=== PATIENT | female | born 1945 | race Caucasian/White ===

== ENCOUNTER 2020-10-22 14:44 | Outpatient (CLI) | payer MEDICARE, OTHER, SELFPAY ==
--- NOTE | ~2020-10-22 | MM_ITS ---
EXAMINATION: MM screening [facility] BI w marcelo HISTORY: Screening TECHNIQUE: Craniocaudal and mediolateral oblique 3-D tomosynthesis images were obtained and synthetic 2-D images were generated. CAD analysis was submitted and interpreted. COMPARISON: Comparison to multiple prior studies sequentially, with oldest reviewed study dated 06/08. BREAST PARENCHYMAL COMPOSITION: There are scattered areas of fibroglandular density. FINDINGS: There is no evidence of suspicious mass, calcification, or architectural distortion to sugg est malignancy in either breast. There has been no suspicious interval change. IMPRESSION: 1. No mammographic evidence of malignancy. 2. Recommend routine screening mammography in one year. BI-RADS Category 1: Negative Reviewed, dictated and finalized at location A.
== END 2020-10-22 14:45 | disposition home or self-care (01) ==
LOC: ANHIMG 14:47
PROVIDERS: PCP Family Medicine; Visit Provider Family Medicine
DX: Z12.31 Encounter for screening mammogram for malignant neoplasm of breast (principal)
CPT/HCPCS: 77063; 77067

== ENCOUNTER 2021-04-28 02:28 | Day surgery (SDC) | payer MEDICARE, OTHER, SELFPAY ==
[2021-04-13 08:40] VITALS: BMI 42.7
[2021-04-28 09:19] VITALS: BP 141/79; PULSE 88; RESP 20; TEMP 36.2; O2SAT 98; BMI 45.6
[2021-04-28] MEDS: LACTATED RINGERS 1,000 ML 150 ML IV CONT (09:21)
--- NOTE | 2021-04-28 09:27 | P.PNAN_ITS ---
Anes - Initial Pre Proc Eval Procedure: Operation Date: 04/28/21 10:30 Proposed Procedures p Esophagogastroduodenoscopy - Benjamin Mckenzie MD Date/Time: 04/28/21 09:27 Surgeon: Benjamin Mckenzie MD Pre Op Diagnosis: abnormal CAT scan Patient Data Age: 76 Gender: F Height: 1.63 m Weight: 120.7 kg Last Vital Signs Temp 36.2 C L 04/28/21 09:19 Pulse 88 04/28/21 09:19 Resp 20 04/28/21 09:19 BP 141/79 H 04/28/21 09:19 Pulse Ox 98 04/28/21 09:19 Allergies Allergy/AdvReac Type Severity Reaction Status Date / Time No Known Allergies Allergy Verified 04/28/21 09:18 Home Medications Medication Instructions Recorded Confirmed Type multivitamin 1 tablet PO DAILY 06/26/19 04/28/21 History hydrochlorothiazide 25 mg tablet 25 mg PO DAILY #90 tablet 12/17/20 04/28/21 Rx pravastatin 40 mg tablet 40 mg PO DAILY #90 tablet 12/17/20 04/28/21 Rx telmisartan 80 mg tablet 80 mg PO DAILY #90 tablet 12/17/20 04/28/21 Rx Patient hx anesthesia problems: none Family hx anesthesia problems: none Results Review: All pre-operative results and documents have been reviewed as part of the pre-operative evaluation. [facility] Past Medical History Medical History (Updated 04/28/21 @ 09:28 by Sung Dorman MD) Morbid obesity Osteoarthritis Osteopenia Surgical History Surgical History (Updated 04/28/21 @ 09:28 by Sung Dorman MD) History of total knee arthroplasty Family History Family History Father Hypertension Mother Hypertension Social History Social History Smoking status: Never smoker Second hand tobacco smoke exposure: No Alcohol intake: never Substance use: never Substance use type: does not use Living arrangements: with family Gender identity (if verbalized by the patient): Female Spiritual care concerns: No Anes - Eval Final PreProcedure Day of Procedure 04/28/21 09:27 Patient weight: morbidly obese Heart: regular rate and rhythm Lungs: clear to auscultation Airway: Mallampati scale class II Neurological: alert and oriented Last oral intake: >/= 8 hours ASA classification: III Emergent: no Anesthetic plan: proceed Anesthesia type and monitoring: general GIVS and standard monitoring Results Review: All pre-operative results and documents have been reviewed as part of the pre-operative evaluation. Informed Consent: The patient's anesthetic plan and its attendant risks and benefits were discussed with the patient/family/POA. Questions were solicited and answers provided to the satisfaction of the patient/family/POA.
--- NOTE | 2021-04-28 10:03 | PM.HPGS ---
History of Present Illness History of Present Illness Consent: Risks, benefits, and alternatives have been discussed and questions answered. Patient agrees to proceed with procedure. Chief complaint: abnormal CAT scan Narrative: Gita Rodriguez is a 76 year old female Referred for endoscopy because of an abnormality seen on CT scan. She had a CT scan to rule out pulmonary embolism. On that they saw what appeared to be a filling defect in the distal esophagus. She denies dysphagia or heartburn Review of Systems Review of Systems: All systems reviewed & are unremarkable except as noted in HPI and below PMFSH Past Medical History Medical History Morbid obesity Osteoarthritis Osteopenia Surgical History Surgical History History of total knee arthroplasty Family History Family History Father Hypertension Mother Hypertension Social History Social History Smoking status: Never smoker Second hand tobacco smoke exposure: No Alcohol intake: never Substance use: never Substance use type: does not use Living arrangements: with family Gender identity (if verbalized by the patient): Female Spiritual care concerns: No Meds Home Medications and Allergies Home Medications Medication Instructions Recorded Confirmed Type multivitamin 1 tablet PO DAILY 06/26/19 04/28/21 History hydrochlorothiazide 25 mg tablet 25 mg PO DAILY #90 tablet 12/17/20 04/28/21 Rx pravastatin 40 mg tablet 40 mg PO DAILY #90 tablet 12/17/20 04/28/21 Rx telmisartan 80 mg tablet 80 mg PO DAILY #90 tablet 12/17/20 04/28/21 Rx Allergies Allergy/AdvReac Type Severity Reaction Status Date / Time No Known Allergies Allergy Verified 04/28/21 09:18 Vital Signs Vital Signs - 24 hr 04/28/21 09:19 Temperature 36.2 C L Pulse Rate 88 Respiratory Rate 20 Blood Pressure 141/79 H Pulse Oximetry 98 Exam Const: General: alert Orientation/consciousness: patient oriented x3 Resp: Auscultation: clear to auscultation bilaterally Cardio: Rhythm: regular rhythm GI: GI Palp: Yes Soft to palpation and No Tenderness to palpation present (GI) Neuro: General: patient oriented x3 Assessment and Plan Assessment and plan (1) Abnormal CT scan, gastrointestinal tract: Code(s): R93.3 - Abnormal findings on diagnostic imaging of other parts of digestive tract Status: Acute Assessment and Plan: EGD with possible biopsy or dilatation or cautery.
[2021-04-28 10:08] VITALS: BP 113/58; PULSE 80; RESP 24; O2SAT 100
[2021-04-28 10:18] VITALS: BP 99/57; PULSE 79; RESP 22; O2SAT 100
[2021-04-28 10:28] VITALS: BP 107/62; PULSE 82; RESP 19; O2SAT 100
== END 2021-04-28 10:38 | disposition home or self-care (01) ==
PROVIDERS: PCP Family Medicine; Visit Provider Internal Medicine Gastroenterology
PROC: 0DJ08ZZ Inspection of Upper Intestinal Tract, Via Natural or Artificial Opening Endoscopic (ICD-10-PCS; CPT 43235; principal; 2021-04-28 10:30)
DX: K21.9 Gastro-esophageal reflux disease without esophagitis (principal); E66.01 Morbid (severe) obesity due to excess calories; Z68.42 Body mass index [BMI] 45.0-49.9, adult
CPT/HCPCS: 43239; 87081; 88305; J2704; J7120